=== PATIENT | female | born 1990 | race Caucasian/White ===

== ENCOUNTER 2017-09-28 17:10 | Emergency (ER) | payer BC, OTHER ==
[2017-09-28 17:18] VITALS: RESP 18
--- NOTE | 2017-09-28 17:54 | ED ---
Psych HPI - General Chief Complaint: Psychiatric Symptoms Stated Complaint: EPS eval Time Seen by Provider: 09/28/17 17:21 Source: patient, family, RN notes reviewed Mode of arrival: ambulatory - History of Present Illness Initial Comments: This is a 27-year-old female with history of Prader-Willi syndrome who presents to the emergency department for mental health evaluation. Patient is accompanied by her father who is also her guardian. Father states that recently patient has been paranoid and has been rambling on about random things. He states the patient takes no anti-psychotic or anti-depression medications. He states that patient had an episode of paranoia 2 years ago and was hospitalized. He states that the same time she was noted to have a urinary tract infection. Patient does admit to increased urinary frequency but denies dysuria or hematuria. Father states that one patient was hospitalized 2 years ago she was sent to [facility] and was overmedicated. He states that she had to be transported via helicopter to [facility] where she was admitted medically. Patient denies any recent illnesses or infections. Denies fevers or chills, chest pain or shortness of breath, abdominal pain, nausea or vomiting. Denies cough, runny nose, sore throat. - Related Data Home Medications Medication Instructions Recorded Confirmed Budesonide [Pulmicort] 0.5 mg INHALATION RT-BID 09/28/17 09/28/17 Cholecalciferol [Vitamin D3] 1,000 unit PO DAILY 09/28/17 09/28/17 Cinnamon Bark [Cinnamon] 500 mg PO DAILY 09/28/17 09/28/17 Krill Oil 500 mg PO DAILY 09/28/17 09/28/17 Montelukast Sodium [Singulair] 10 mg PO HS 09/28/17 09/28/17 Multivitamins, Thera [Multivitamin 1 tab PO DAILY 09/28/17 09/28/17 (formulary)] Omalizumab [Xolair] 150 mg SQ QMONTH 09/28/17 09/28/17 Allergies Allergy/AdvReac Type Severity Reaction Status Date / Time No Known Allergies Allergy Verified 09/28/17 17:49 Review of Systems ROS Statement: Those systems with pertinent positive or pertinent negative responses have been documented in the HPI. ROS Other: All systems not noted in ROS Statement are negative. Past Medical History Past Medical History: Asthma, Diabetes Mellitus Additional Past Medical History / Comment(s): scoliosis, praderwilli syndrome History of Any Multi-Drug Resistant Organisms: None Reported Additional Past Surgical History / Comment(s): eye surgery Past Psychological History: No Psychological Hx Reported Smoking Status: Never smoker Past Alcohol Use History: None Reported Past Drug Use History: None Reported General Exam - General Exam Comments Initial Comments: General: Awake and alert, well-developed; in no apparent distress. HEENT: Head atraumatic, normocephalic. Pupils are equal, round and reactive to light. Extraocular movements intact. Oropharynx moist without erythema or exudate. Neck: Supple. Normal ROM. Cardiovascular: Regular rate and rhythm. No murmurs, rubs or gallops. Chest symmetrical. Respiratory: Lungs clear to auscultation bilaterally. No wheezes, rales or rhonchi. Normal respiratory effort with no use of accessory muscles. Abdomen: Soft, non-tender, non-distended. Musculoskeletal: Normal ROM, no tenderness bilateral upper and lower extremities. Ambulating normally. Skin: [place], warm and dry without rashes or lesions. Neurological: Alert and oriented x3. CN II-XII grossly intact. Speech is fluent and answers are appropriate. No focal neuro deficits. Psychiatric: Appears anxious. Limitations: no limitations Course Vital Signs 09/28/17 17:12 Temperature 98.5 F Pulse Rate 78 Respiratory 18 Rate Blood Pressure 145/80 O2 Sat by Pulse 100 Oximetry Medical Decision Making - Medical Decision Making 27-year-old female who presents to the emergency department for mental health evaluation. Patient is accompanied by her guardian, who is also her father. Reports increasing paranoia and rambling on. Patient also reported increased urinary frequency. UA revealed no evidence for infection. Patient was evaluated by EPS who is recommending discharge home. They were provided with referral and discussed follow-up options. Vital signs are stable and patient is in acute distress. She will be discharged home at this time. All questions were answered. - Lab Data Lab Results 09/28/17 Range/Units 18:00 Urine Color Colorless Urine Appearance Clear (Clear) Urine pH 6.0 (5.0-8.0) Ur Specific [place] 1.002 (1.001-1.035) Urine Protein Negative (Negative) Urine Glucose (UA) Negative (Negative) Urine Ketones 1+ H (Negative) Urine Blood Negative (Negative) Urine Nitrite Negative (Negative) Urine Bilirubin Negative (Negative) Urine Urobilinogen <2.0 (<2.0) mg/dL Ur Leukocyte Esterase Negative (Negative) Urine Opiates Screen Not Detected (NotDetected) Ur Oxycodone Screen Not Detected (NotDetected) Urine Methadone Screen Not Detected (NotDetected) Ur Propoxyphene Screen Not Detected (NotDetected) Ur Barbiturates Screen Not Detected (NotDetected) U Tricyclic Antidepress Not Detected (NotDetected) Ur Phencyclidine Scrn Not Detected (NotDetected) Ur Amphetamines Screen Not Detected (NotDetected) U Methamphetamines Scrn Not Detected (NotDetected) U Benzodiazepines Scrn Not Detected (NotDetected) Urine Cocaine Screen Not Detected (NotDetected) U Marijuana (THC) Screen Not Detected (NotDetected) Disposition Clinical Impression: Behavioral change Disposition: HOME SELF-CARE Condition: Good Additional Instructions: Please follow up with providers suggested by the EPS nurse. Please follow up with primary care provider within 1-2 days. Return to emergency department if symptoms should worsen or any concerns arise. Is patient prescribed a controlled substance at d/c from ED?: No Referrals: Nonstaff,Physician [Primary Care Provider] - 1-2 days Time of Disposition: 19:37
[2017-09-28 18:10] LABS: Appearance,Urine Clear (Clear); Bilirubin,Urine Negative (Negative); Blood,Urine Negative (Negative); Color,Urine Colorless; Glucose,Urine (UA) Negative (Negative); Ketones,Urine 1+ (Negative); Leukocyte Esterase,Urine Negative (Negative); Nitrite,Urine Negative (Negative); Protein,Urine Negative (Negative); Specific Gravity,Urine 1.002 (1.001-1.035); Urobilinogen,Urine <2.0 mg/dL (<2.0)
[2017-09-28 18:21] LABS: Amphetamine Screen,Urine Not Detected (NotDetected); Barbiturate Screen,Urine Not Detected (NotDetected); Benzodiazepines Screen,Urine Not Detected (NotDetected); Cocaine Screen,Urine Not Detected (NotDetected); Methadone Screen, Urine Not Detected (NotDetected); Opiate Screen,Urine Not Detected (NotDetected); Oxycodone Screen, Urine Not Detected (NotDetected); Phencyclidine Screen,Urine Not Detected (NotDetected); Tricyclic Antidepressant,Urine Not Detected (NotDetected); Urn Cannabinoid Scrn Not Detected (NotDetected)
[2017-09-28 19:47] VITALS: BP 156/99; PULSE 87; TEMP 99
== END 2017-09-28 19:46 | disposition home or self-care (01) ==
LOC: EC 17:10
DX: F91.9 Conduct disorder, unspecified (principal); R35.0 Frequency of micturition; J45.909 Unspecified asthma, uncomplicated; Z79.51 Long term (current) use of inhaled steroids; Z79.899 Other long term (current) drug therapy
CPT/HCPCS: 80306; 81003; 82075; 99283

== ENCOUNTER 2018-04-12 16:07 | Observation (INO) | payer BC, OTHER ==
[2018-04-12 17:16] LABS: Glucose,Whole Blood 129 mg/dL (75-99)
[2018-04-12] MEDS ORDERED: IPRATROPIUM-ALBUTEROL 3 ML NEB INHALATION STA (17:37)
--- NOTE | 2018-04-12 17:46 | ED ---
General Adult HPI - General Chief complaint: Anxiety Stated complaint: SOB Time Seen by Provider: 04/12/18 17:03 Source: patient, family, RN notes reviewed Mode of arrival: ambulatory Limitations: no limitations - History of Present Illness Initial comments: Patient is a pleasant 28-year-old female presenting to the emergency Department with complaints of difficulty in breathing. Onset of symptoms was a past couple of hours. Patient does have a history of asthma with similar symptoms previously however patient has not had asthma symptoms like this in several years. Patient has been well-controlled with several medications from Dr. Miller. No fever. No chest discomfort. No leg pain or leg swelling. Patient' s father is the power of wiping rag washer and helps provide history. - Related Data Home Medications Medication Instructions Recorded Confirmed Budesonide [Pulmicort] 0.5 mg INHALATION RT-HS 09/28/17 04/12/18 Cholecalciferol [Vitamin D3] 1,000 unit PO DAILY 09/28/17 04/12/18 Cinnamon Bark [Cinnamon] 500 mg PO DAILY 09/28/17 04/12/18 Krill Oil 500 mg PO DAILY 09/28/17 04/12/18 Montelukast Sodium [Singulair] 10 mg PO HS 09/28/17 04/12/18 Multivitamins, Thera [Multivitamin 1 tab PO DAILY 09/28/17 04/12/18 (formulary)] Omalizumab [Xolair] 300 mg SQ QMONTH 09/28/17 04/12/18 Allergies Allergy/AdvReac Type Severity Reaction Status Date / Time mold Allergy Dyspnea Verified 04/12/18 17:03 Review of Systems ROS Statement: Those systems with pertinent positive or pertinent negative responses have been documented in the HPI. ROS Other: All systems not noted in ROS Statement are negative. Constitutional: Denies: fever Eyes: Denies: eye pain ENT: Denies: ear pain Respiratory: Reports: dyspnea Cardiovascular: Denies: palpitations Endocrine: Denies: fatigue Gastrointestinal: Denies: abdominal pain Genitourinary: Denies: dysuria Musculoskeletal: Denies: back pain Skin: Denies: rash Neurological: Denies: weakness Past Medical History Past Medical History: Asthma, Diabetes Mellitus Additional Past Medical History / Comment(s): scoliosis, praderwilli syndrome History of Any Multi-Drug Resistant Organisms: None Reported Additional Past Surgical History / Comment(s): eye surgery Past Psychological History: No Psychological Hx Reported Smoking Status: Never smoker Past Alcohol Use History: None Reported Past Drug Use History: None Reported General Exam Limitations: no limitations General appearance: alert, anxious Head exam: Present: atraumatic Eye exam: Present: normal appearance, PERRL ENT exam: Present: normal oropharynx Neck exam: Present: normal inspection Respiratory exam: Present: decreased breath sounds Cardiovascular Exam: Present: regular rate, normal rhythm GI/Abdominal exam: Present: soft. Absent: tenderness Extremities exam: Present: normal inspection. Absent: pedal edema, calf tenderness Back exam: Present: other (Severe scoliosis) Neurological exam: Present: alert Psychiatric exam: Present: anxious Skin exam: Present: normal color Course Vital Signs 04/12/18 04/12/18 04/12/18 16:14 18:08 18:20 Temperature 97.9 F Pulse Rate 91 75 97 Respiratory 24 24 20 Rate Blood Pressure 125/80 O2 Sat by Pulse 100 Oximetry - Reevaluation(s) Reevaluation #1: 04/12/18 17:46 Patient and father both refuse Ativan. Patient reportedly had Ativan and Abilify several years ago and had difficulty with that. Father does admit the patient appears anxious. EKG Findings - EKG Comments: EKG Findings:: Normal sinus rhythm 91. MN 122. QRS 70. QT 372. QTC 457. Normal axis. Normal QRS. No acute ST change. Medical Decision Making - Medical Decision Making Patient reevaluated with only mild improvement of symptoms. Lung sounds are clear. Patient and father are still resistant to Ativan. Case was discussed with practitioner Ye, covering for Dr. Price, who will admit for hospital call. - Lab Data Result diagrams: 04/12/18 17:25 04/12/18 17:25 Lab Results 04/12/18 04/12/18 04/12/18 Range/Units 17:14 17:25 17:25 WBC 7.4 (3.8-10.6) k/uL RBC 4.91 (3.80-5.40) m/uL Hgb 14.8 (11.4-16.0) gm/dL Hct 42.2 (34.0-46.0) % MCV 86.0 (80.0-100.0) fL MCH 30.1 (25.0-35.0) pg MCHC 35.0 (31.0-37.0) g/dL RDW 12.0 (11.5-15.5) % Plt Count 265 (150-450) k/uL Neutrophils % 66 % Lymphocytes % 25 % Monocytes % 6 % Eosinophils % 1 % Basophils % 0 % Neutrophils # 4.9 (1.3-7.7) k/uL Lymphocytes # 1.9 (1.0-4.8) k/uL Monocytes # 0.5 (0-1.0) k/uL Eosinophils # 0.0 (0-0.7) k/uL Basophils # 0.0 (0-0.2) k/uL PT (9.0-12.0) sec INR (<1.2) APTT (22.0-30.0) sec D-Dimer (<0.60) mg/L FEU Sodium 136 L (137-145) mmol/L Potassium 4.2 (3.5-5.1) mmol/L Chloride 98 (98-107) mmol/L Carbon Dioxide 21 L (22-30) mmol/L Anion Gap 17 mmol/L BUN 9 (7-17) mg/dL Creatinine 0.55 (0.52-1.04) mg/dL Est GFR (CKD-EPI)AfAm >90 (>60 ml/min/1.73 sqM) Est GFR (CKD-EPI)NonAf >90 (>60 ml/min/1.73 sqM) Glucose 119 H (74-99) mg/dL POC Glucose (mg/dL) 129 H (75-99) mg/dL POC Glu Technology Integration Specialist ID Maranda Cheema Calcium 10.5 H (8.4-10.2) mg/dL Total Bilirubin 1.1 (0.2-1.3) mg/dL AST 29 (14-36) U/L ALT 23 (9-52) U/L Alkaline Phosphatase 114 (38-126) U/L Troponin I (0.000-0.034) ng/mL NT-Pro-B Natriuret Pep pg/mL Total Protein 8.7 H (6.3-8.2) g/dL Albumin 5.6 H (3.5-5.0) g/dL Urine HCG, Qual (Not Detectd) 04/12/18 04/12/18 04/12/18 Range/Units 17:25 17:25 17:25 WBC (3.8-10.6) k/uL RBC (3.80-5.40) m/uL Hgb (11.4-16.0) gm/dL Hct (34.0-46.0) % MCV (80.0-100.0) fL MCH (25.0-35.0) pg MCHC (31.0-37.0) g/dL RDW (11.5-15.5) % Plt Count (150-450) k/uL Neutrophils % % Lymphocytes % % Monocytes % % Eosinophils % % Basophils % % Neutrophils # (1.3-7.7) k/uL Lymphocytes # (1.0-4.8) k/uL Monocytes # (0-1.0) k/uL Eosinophils # (0-0.7) k/uL Basophils # (0-0.2) k/uL PT 10.1 (9.0-12.0) sec INR 0.9 (<1.2) APTT 22.8 (22.0-30.0) sec D-Dimer <0.17 (<0.60) mg/L FEU Sodium (137-145) mmol/L Potassium (3.5-5.1) mmol/L Chloride (98-107) mmol/L Carbon Dioxide (22-30) mmol/L Anion Gap mmol/L BUN (7-17) mg/dL Creatinine (0.52-1.04) mg/dL Est GFR (CKD-EPI)AfAm (>60 ml/min/1.73 sqM) Est GFR (CKD-EPI)NonAf (>60 ml/min/1.73 sqM) Glucose (74-99) mg/dL POC Glucose (mg/dL) (75-99) mg/dL POC Glu Technology Integration Specialist ID Calcium (8.4-10.2) mg/dL Total Bilirubin (0.2-1.3) mg/dL AST (14-36) U/L ALT (9-52) U/L Alkaline Phosphatase (38-126) U/L Troponin I <0.012 (0.000-0.034) ng/mL NT-Pro-B Natriuret Pep 93 pg/mL Total Protein (6.3-8.2) g/dL Albumin (3.5-5.0) g/dL Urine HCG, Qual (Not Detectd) 04/12/18 Range/Units 17:25 WBC (3.8-10.6) k/uL RBC (3.80-5.40) m/uL Hgb (11.4-16.0) gm/dL Hct (34.0-46.0) % MCV (80.0-100.0) fL MCH (25.0-35.0) pg MCHC (31.0-37.0) g/dL RDW (11.5-15.5) % Plt Count (150-450) k/uL Neutrophils % % Lymphocytes % % Monocytes % % Eosinophils % % Basophils % % Neutrophils # (1.3-7.7) k/uL Lymphocytes # (1.0-4.8) k/uL Monocytes # (0-1.0) k/uL Eosinophils # (0-0.7) k/uL Basophils # (0-0.2) k/uL PT (9.0-12.0) sec INR (<1.2) APTT (22.0-30.0) sec D-Dimer (<0.60) mg/L FEU Sodium (137-145) mmol/L Potassium (3.5-5.1) mmol/L Chloride (98-107) mmol/L Carbon Dioxide (22-30) mmol/L Anion Gap mmol/L BUN (7-17) mg/dL Creatinine (0.52-1.04) mg/dL Est GFR (CKD-EPI)AfAm (>60 ml/min/1.73 sqM) Est GFR (CKD-EPI)NonAf (>60 ml/min/1.73 sqM) Glucose (74-99) mg/dL POC Glucose (mg/dL) (75-99) mg/dL POC Glu Technology Integration Specialist ID Calcium (8.4-10.2) mg/dL Total Bilirubin (0.2-1.3) mg/dL AST (14-36) U/L ALT (9-52) U/L Alkaline Phosphatase (38-126) U/L Troponin I (0.000-0.034) ng/mL NT-Pro-B Natriuret Pep pg/mL Total Protein (6.3-8.2) g/dL Albumin (3.5-5.0) g/dL Urine HCG, Qual Not Detected (Not Detectd) - Radiology Data Radiology results: image reviewed (Chest x-ray negative for acute abnormality.) Disposition Clinical Impression: Dyspnea Disposition: ADMITTED IP TO THIS [facility] Instructions (If sedation given, give patient instructions): Generalized Anxiety Disorder (ED) Is patient prescribed a controlled substance at d/c from ED?: No Referrals: Nonstaff,Physician [Primary Care Provider] - 1-2 days Decision Time: 20:27
[2018-04-12 18:15] LABS: Basophils % (A) 0 %; Eosinophils % (A) 1 %; HCT 42.2 % (34.0-46.0); HGB 14.8 gm/dL (11.4-16.0); Lymphocytes # (A) 1.9 k/uL (1.0-4.8); Lymphocytes % (A) 25 %; MCH 30.1 pg (25.0-35.0); Mean Platelet Volume 7.4; Monocytes # (A) 0.5 k/uL (0-1.0); Monocytes % (A) 6 %; Neutrophils # (A) 4.9 k/uL (1.3-7.7); Neutrophils % (A) 66 %; Platelet Count 265 k/uL (150-450); RBC 4.91 m/uL (3.80-5.40); WBC 7.4 k/uL (3.8-10.6)
[2018-04-12 18:24] LABS: ALT 23 U/L (9-52); AST 29 U/L (14-36); Albumin 5.6 g/dL (3.5-5.0); Alkaline Phosphatase 114 U/L (38-126); Anion Gap 17 mmol/L; Blood Urea Nitrogen 9 mg/dL (7-17); Calcium 10.5 mg/dL (8.4-10.2); Carbon Dioxide 21 mmol/L (22-30); Chloride 98 mmol/L (98-107); Glucose 119 mg/dL (74-99); Sodium 136 mmol/L (137-145); Total Bilirubin 1.1 mg/dL (0.2-1.3); Total Protein 8.7 g/dL (6.3-8.2)
[2018-04-12 18:26] LABS: D-Dimer <0.17 mg/L FEU (<0.60); INR 0.9 (<1.2); Partial Thromboplastin Time 22.8 sec (22.0-30.0); Prothrombin Time 10.1 sec (9.0-12.0)
[2018-04-12 18:33] LABS: Potassium 4.2 mmol/L (3.5-5.1)
--- NOTE | 2018-04-12 19:16 | XR ---
EXAMINATION TYPE: XR chest 2V DATE OF EXAM: 04/12/2018 COMPARISON: NONE HISTORY: Short of breath TECHNIQUE: Frontal and lateral views of the chest are obtained. FINDINGS: 2 views show a mild thoracic dextroscoliosis. Heart size is normal. There is some mild sanchez ear density left upper lobe. The other lung molina are clear. There is no pleural effusion. IMPRESSION: Minimal scarring or subsegmental atelectasis left upper lobe. Dextroscoliosis. Normal he art.
[2018-04-12] MEDS ORDERED: IPRATROPIUM-ALBUTEROL 3 ML NEB INHALATION PRN (20:27)
[2018-04-12] MEDS ORDERED: NALOXONE 0.4 MG/ML 1 ML VIAL IV PRN (20:30)
[2018-04-12 22:25] VITALS: BMI 24.6
[2018-04-12] MEDS ORDERED: MONTELUKAST 10 MG TAB PO SCH (23:00)
[2018-04-13 08:44] VITALS: BP 124/76; RESP 17; TEMP 98.3
[2018-04-13] MEDS: IPRATROPIUM-ALBUTEROL 3 ML NEB INHALATION SCH ×2 (09:20→12:49)
[2018-04-13 09:34] VITALS: PULSE 96
--- NOTE | 2018-04-13 12:40 | P.CN ---
Psychiatric Consult - . Consult date: 04/13/18 Consult:: 04/13/18 10:22 anxiety Assessment and Plan Assessment: Patient is a pleasant 28-year-old female presenting to the emergency Department with complaints of difficulty in breathing. Onset of symptoms was a past couple of hours. Patient does have a history of asthma with similar symptoms previously however patient has not had asthma symptoms like this in several years. Patient has been well-controlled with several medications from Dr. Miller. No fever. No chest discomfort. No leg pain or leg swelling. Patient' s father is the power of real estate associate attorney and helps provide history. - Related Data Home Medications Medication Instructions Recorded Confirmed Budesonide [Pulmicort] 0.5 mg INHALATION RT-HS 09/28/17 04/12/18 Cholecalciferol [Vitamin D3] 1,000 unit PO DAILY 09/28/17 04/12/18 Cinnamon Bark [Cinnamon] 500 mg PO DAILY 09/28/17 04/12/18 Krill Oil 500 mg PO DAILY 09/28/17 04/12/18 Montelukast Sodium [Singulair] 10 mg PO HS 09/28/17 04/12/18 Multivitamins, Thera [Multivitamin 1 tab PO DAILY 09/28/17 04/12/18 (formulary)] Omalizumab [Xolair] 300 mg SQ QMONTH 09/28/17 04/12/18 Allergies Allergy/AdvReac Type Severity Reaction Status Date / Time mold Allergy Dyspnea Verified 04/12/18 17:03 Past Medical History Past Medical History: Asthma, Diabetes Mellitus Additional Past Medical History / Comment(s): scoliosis, praderwilli syndrome History of Any Multi-Drug Resistant Organisms: None Reported Additional Past Surgical History / Comment(s): eye surgery Past Psychological History: No Psychological Hx Reported Smoking Status: Never smoker Past Alcohol Use History: None Reported Past Drug Use History: None Reported Mental status examination: This is a 28-year-old female who was intellectual disability and had presented with chest discomfort. She is cryptic interim history but is able to answer questions in a reliable fashion. The patient presents alert, pleasant, and cooperative. There calmly seated without any agitated behavior. She reports that [her] mood is good. Affect is congruent and euthymic. [She] deny having any suicidal or homicidal ideation intent or plan. [She] denies any auditory or visual hallucinations. There is no evidence of any delusional thought content. [Her] thought process is linear and goal-directed. [Her] speech is fluent and nonpressured. [Her] memory and concentration is grossly intact for the purposes of this session. Psychiatric impression: Intellectual disability and no major psychiatric disorder Psychiatric recommendation: She is not suicidal homicidal and she is not a candidate for inpatient psychiatry at this time. Thank you for the consult Eagle Anderson D.O. PhD (1) Anxiety Current Visit: Yes Status: Acute Code(s): F41.9 - ANXIETY DISORDER, UNSPECIFIED SNOMED Code(s): 77780357 Time with Patient: Less than 30
--- NOTE | 2018-04-13 13:44 | CONS ---
CONSULTATION Zuleima Rodriguez is a 28-year-old female with a known history of severe asthma, who presented to the ED at [facility] with increasing shortness of breath of about one day's duration. She did not have any fever or chills. She was seen in the ER. She also had some chest tightness and was admitted to the hospital for further evaluation. This morning, she is at her baseline as far as shortness of breath is concerned, and has no chest pain. No fever or chills. PAST MEDICAL HISTORY: Past medical history is positive for asthma, diabetes mellitus, scoliosis. The patient is mentally challenged. The patient is a never smoker. FAMILY HISTORY: Family history is noncontributory. SOCIAL HISTORY: Patient does not smoke. She does not drink alcohol excessively. ALLERGIES: She is allergic to mold. . MEDICATIONS: Her medications prior to admission were Xolair, multivitamin, Singulair, Pulmicort 0.5 mg at night, albuterol inhaler, Krill oil. REVIEW OF SYSTEMS: Review of systems is positive for previous history of obstructive sleep apnea, but since her weight loss she has not had any evidence of FRAN. PHYSICAL EXAMINATION: On physical examination, her blood pressure is 124/76, respiratory rate of 17, pulse rate 105, temperature 98.3, O2 saturation on room air is 94%. HEENT reveals pupils are equal. Chest is clear. Cardiovascular system reveals an S1, S2. Abdomen is soft. There is no pedal edema. White count is 7.4, hemoglobin of 14.8 sodium 136, potassium 4.2, chloride 98, bicarb 21, BUN 9, creatinine 0.55, calcium 10.5, total bilirubin 1.1, albumin 5.6, total protein 8.7. Chest x-ray showed no clear infiltrate. IMPRESSION AT THIS TIME: 1. Asthma with acute exacerbation. 2. Previous history of obstructive sleep apnea. 3. The patient mentally challenged. At this point in time, continue montelukast, bronchodilators, and Pulmicort. Would agree with possible discharge planning on her today with close outpatient followup and would increase her Pulmicort to 0.5 mg aerosol twice a day as an outpatient. I did associate professor of counseling her father who is her Power Of Manager Employment regarding her condition and this approach and he has a fair understanding of our recommendations. I would like to thank you for allowing me the privilege of participating in the care of our patient. [email or web address] / IJN: [id number] /
--- NOTE | 2018-04-13 14:03 | P.DS ---
Providers Date of admission: 04/12/18 20:27 Attending physician: Jean Price MD Consults: 04/12/18 20:27 Consult Physician Routine Consulting Provider: Eagle Anderson Consult Reason/Comments: Anxiety Do you want consulting provider notified?: Yes 04/12/18 22:47 Consult Physician Routine Consulting Provider: Renny Miller Consult Reason/Comments: Pulmonogist for asthma Do you want consulting provider notified?: Yes, Notify in am Primary care physician: Physician Nonstaff Hospital Course: please refer to my HPI Plan - Discharge Summary Discharge Rx Participant: Yes New Discharge Prescriptions: New Albuterol Inhaler [Ventolin Hfa Inhaler] 1 - 2 puff INHALATION Q6HR PRN #1 inhaler PRN Reason: Shortness Of Breath Or Wheezing No Action Krill Oil 500 mg PO DAILY Cholecalciferol [Vitamin D3] 1,000 unit PO DAILY Multivitamins, Thera [Multivitamin (formulary)] 1 tab PO DAILY Cinnamon Bark [Cinnamon] 500 mg PO DAILY Budesonide [Pulmicort] 0.5 mg INHALATION RT-HS Montelukast Sodium [Singulair] 10 mg PO HS Omalizumab [Xolair] 300 mg SQ QMONTH Discharge Medication List Budesonide [Pulmicort] 0.5 mg INHALATION RT-HS 09/28/17 [History] Cholecalciferol [Vitamin D3] 1,000 unit PO DAILY 09/28/17 [History] Cinnamon Bark [Cinnamon] 500 mg PO DAILY 09/28/17 [History] Krill Oil 500 mg PO DAILY 09/28/17 [History] Montelukast Sodium [Singulair] 10 mg PO HS 09/28/17 [History] Multivitamins, Thera [Multivitamin (formulary)] 1 tab PO DAILY 09/28/17 [History ] Omalizumab [Xolair] 300 mg SQ QMONTH 09/28/17 [History] Albuterol Inhaler [Ventolin Hfa Inhaler] 1 - 2 puff INHALATION Q6HR PRN #1 inhaler 04/13/18 [Rx] Follow up Appointment(s)/Referral(s): Nonstaff,Physician [Primary Care Provider] - 1-2 days Patient Instructions/Handouts: Generalized Anxiety Disorder (ED) Discharge Disposition: HOME SELF-CARE
--- NOTE | 2018-04-13 14:03 | P.HPIM ---
History of Present Illness 28-year-old pleasant female with history of coronary syndromes and mental retardation came in with compensative shortness of breath does have history of asthma patient is not wheezing today denied any significant cough or shortness of breath was believed secondary to anxiety mostly. Patient was evaluated by her barn manager and he believes patient is at his at her baseline cleared for discharge not recommending any systemic steroids patient is on Xolair patient will be discharged on albuterol as needed basis. Patient will be discharged today. Patient denied any fever chills chest x-ray did not show any pneumonic process. Patient does not have any flulike symptoms at this time. Review of Systems REVIEW OF SYSTEMS: CONSTITUTIONAL: No fever, no malaise, no fatigue. HEENT: No recent visual problems or hearing problems. Denied any sore throat. CARDIOVASCULAR: No chest pain, orthopnea, PND, no palpitations, no syncope. PULMONARY: ,no cough, no hemoptysis. GASTROINTESTINAL: No diarrhea, no nausea, no vomiting, no abdominal pain. NEUROLOGICAL: No headaches, no weakness, no numbness. HEMATOLOGICAL: Denies any bleeding or petechiae. GENITOURINARY: Denies any burning micturition, frequency, or urgency. MUSCULOSKELETAL/RHEUMATOLOGICAL: Denies any joint pain, swelling, or any muscle pain. ENDOCRINE: Denies any polyuria or polydipsia. The rest of the 14-point review of systems is negative. Past Medical History Past Medical History: Asthma, Diabetes Mellitus Additional Past Medical History / Comment(s): scoliosis, praderwilli syndrome History of Any Multi-Drug Resistant Organisms: None Reported Additional Past Surgical History / Comment(s): eye surgery Past Anesthesia/Blood Transfusion Reactions: No Reported Reaction Past Psychological History: No Psychological Hx Reported Smoking Status: Never smoker Past Alcohol Use History: None Reported Past Drug Use History: None Reported - Past Family History Father Family Medical History: No Reported History Mother History Unknown: Yes Additional Family Medical History / Comment(s): Mom is noncommunicale Medications and Allergies Home Medications Medication Instructions Recorded Confirmed Type Budesonide [Pulmicort] 0.5 mg INHALATION RT-HS 09/28/17 04/12/18 History Cholecalciferol [Vitamin D3] 1,000 unit PO DAILY 09/28/17 04/12/18 History Cinnamon Bark [Cinnamon] 500 mg PO DAILY 09/28/17 04/12/18 History Krill Oil 500 mg PO DAILY 09/28/17 04/12/18 History Montelukast Sodium [Singulair] 10 mg PO HS 09/28/17 04/12/18 History Multivitamins, Thera [Multivitamin 1 tab PO DAILY 09/28/17 04/12/18 History (formulary)] Omalizumab [Xolair] 300 mg SQ QMONTH 09/28/17 04/12/18 History Albuterol Inhaler [Ventolin Hfa 1 - 2 puff INHALATION Q6HR PRN #1 04/13/18 Rx Inhaler] inhaler Allergies Allergy/AdvReac Type Severity Reaction Status Date / Time mold Allergy Dyspnea Verified 04/12/18 17:03 Physical Exam Vitals: Vital Signs Temp Pulse Pulse Resp BP BP Pulse Ox 04/13/18 09:33 96 04/13/18 09:20 92 04/13/18 07:00 98.3 F 105 H 17 124/76 94 L 04/12/18 23:24 74 16 04/12/18 23:18 97 04/12/18 23:17 72 16 04/12/18 22:24 98.0 F 87 16 128/81 100 04/12/18 21:54 97.1 F L 75 20 126/79 97 04/12/18 18:20 97 20 04/12/18 18:08 75 24 04/12/18 16:14 97.9 F 91 24 125/80 100 Intake and Output 04/12/18 04/13/18 04/13/18 22:59 06:59 14:59 Intake Total 480 100 120 Balance 480 100 120 Intake: Oral 480 100 120 Other: # Voids 1 1 Weight 51.71 kg PHYSICAL EXAMINATION: GENERAL: The patient is alert and oriented x2-3, not in any acute distress. Well developed, well nourished. HEENT: Pupils are round and equally reacting to light. EOMI. No scleral icterus. No conjunctival pallor. Normocephalic, atraumatic. No pharyngeal erythema. No thyromegaly. CARDIOVASCULAR: S1 and S2 present. No murmurs, rubs, or gallops. PULMONARY: Chest is clear to auscultation, no wheezing or crackles. ABDOMEN: Soft, nontender, nondistended, normoactive bowel sounds. No palpable organomegaly. MUSCULOSKELETAL: No joint swelling or deformity. EXTREMITIES: No cyanosis, clubbing, or pedal edema. NEUROLOGICAL: Gross neurological examination did not reveal any focal deficits. SKIN: No rashes. Results CBC & Chem 7: 04/12/18 17:25 04/12/18 17:25 Labs: Abnormal Lab Results - Last 24 Hours (Table) 04/12/18 04/12/18 Range/Units 17:14 17:25 Sodium 136 L (137-145) mmol/L Carbon Dioxide 21 L (22-30) mmol/L Glucose 119 H (74-99) mg/dL POC Glucose (mg/dL) 129 H (75-99) mg/dL Calcium 10.5 H (8.4-10.2) mg/dL Total Protein 8.7 H (6.3-8.2) g/dL Albumin 5.6 H (3.5-5.0) g/dL Thrombosis Risk Factor Assmnt - Choose All That Apply Any of the Below Risk Factors Present?: No Other Risk Factors: No Other congenital or acquired thrombophilia - If yes, enter type in comment: No Thrombosis Risk Factor Assessment Level: Very Low Risk Assessment and Plan Plan: shortness of breath most probably start anxiety disorder psychiatry evaluated the patient did not recommending any acute intervention at this time. Patient was discharged in stable medical condition to home -Asthma chronic intermittent without any significant exacerbation will not require any systemic steroids -Tachycardia secondary to anxiety -History of Prader-Pantera syndrome -scoliosis: Supportive care patient is clinically doing well and will be discharged today in stable medical condition to home
[2018-04-13] MEDS ORDERED: BUDESONIDE 0.5 MG/2 ML NEBU INHALATION SCH (20:00)
== END 2018-04-13 14:49 | disposition home or self-care (01) ==
LOC: EC 16:07 → EEVIPCON 16:07 → 4SSUR 20:27
PROVIDERS: ADMIT Internal Medicine; ATTEND Internal Medicine
DX: J45.901 Unspecified asthma with (acute) exacerbation (principal); E11.9 Type 2 diabetes mellitus without complications; F41.9 Anxiety disorder, unspecified; F79 Unspecified intellectual disabilities; R00.0 Tachycardia, unspecified; M41.9 Scoliosis, unspecified; Q87.1 Congenital malformation syndromes predominantly associated with short stature; Z91.09 Other allergy status, other than to drugs and biological substances; Z79.899 Other long term (current) drug therapy
CPT/HCPCS: 99285; 36415; 94640 ×2; 94760; 85379; 83880; 80053; 84484 ×2; 85025; 85610; 85730; 81025; 71046; G0378 ×2

== ENCOUNTER → 2018-11-13 | Outpatient (CLI) | payer BC, OTHER ==
--- NOTE | 2018-11-13 17:00 | US ---
EXAMINATION TYPE: US pelvic complete DATE OF EXAM: 11/13/2018 COMPARISON: NONE CLINICAL HISTORY: amenorrhea N91.0. TECHNIQUE: Transabdominal (TA). Date of LMP: Patient has Prader Pantera syndrome. She has never had a period other than a brief time when she took hormones so that she would have a period. EXAM MEASUREMENTS: Uterus: 4.4 x 4.6 x 2.3 cm Endometrial Stripe: 0.2 cm Right Ovary: 2.4 x 0.8 x 1.1cm Left Ovary: 1.2 x 0.8 x 0.9cm 1. Uterus: Anteverted wnl 2. Endometrium: wnl 3. Right Ovary: wnl 4. Left Ovary: wnl 5. Bilateral Adnexa: wnl 6. Posterior cul-de-sac: wnl IMPRESSION: Diminutive uterus. Ovaries are unremarkable.
== END | disposition home or self-care (01) ==
LOC: RADUSWWP 15:18
PROVIDERS: ATTEND Obstetrics & Gynecology
DX: N85.8 Other specified noninflammatory disorders of uterus (principal); N91.2 Amenorrhea, unspecified
CPT/HCPCS: 76856

== ENCOUNTER → 2018-11-16 | Outpatient (CLI) | payer BC, OTHER ==
--- NOTE | 2018-11-19 08:06 | BD ---
EXAMINATION TYPE: Axial Bone Density DATE OF EXAM: 11/16/2018 COMPARISON: NONE CLINICAL HISTORY: E 28.39 Height: 58.5 Weight: 122.3 FRAXIN RISK QUESTIONS: Alcohol (3 or more units per day): no Family History (Parent hip fracture): no Glucocorticoids (More than 3mos): no (Ex: prednisone, prednisolone, methylprednisolone, dexamethasone, and hydrocortisone). History of Fracture in Adulthood: yes Secondary Osteoporosis: no 1. Type 1 Diabetes: no 2. Hyperthyroidism: no 3. Menopause before 45: yes 4. Malnutrition: no 5. Chronic liver disease: no Rheumatoid Arthritis: no Current Tobacco Use: no MEDICATIONS: singulair Additional History: patient is a poor historian/ mentally challenged EXAM MEASUREMENTS: Bone mineral densitometry was performed using the [employer] System. Bone mineral density as measured about the Lumbar spine is: ----- L1-L4(G/cm2): 1.077 T Score Values are as follows: ----- L2: -0.5 ----- L3: -0.5 ----- L4: -1.7 ----- L1-L4: -0.9 Bone mineral density : baseline Bone mineral density about the R hip (g/cm2): 0.917 Bone mineral density about the L hip (g/cm2): 0.863 T Score values are as follows: -----R Neck: -0.9 -----L Neck: -1.3 -----R Total: -0.3 -----L Total: -1.3 Bone mineral density : baseline IMPRESSION: Osteopenia (T Score between -2.5 and -1). There is slightly increased risk of fracture and the patient may be considered for treatment. Re-Screen 2-5 years. NOTE: T-SCORE=SD OF THE YOUNG ADULT MEAN.
== END ==
LOC: RADBDWWP 15:09
PROVIDERS: ATTEND Obstetrics & Gynecology
DX: M85.80 Other specified disorders of bone density and structure, unspecified site (principal); M40.209 Unspecified kyphosis, site unspecified; N91.0 Primary amenorrhea
CPT/HCPCS: 77080